=== PATIENT | female | born 2000 | race Caucasian/White ===

== ENCOUNTER 2021-01-06 01:32 | Emergency (ER) | payer OTHER ==
[~2021-01-06] VITALS: Ht 170.2 cm; Wt 73.4 kg
[2021-01-06 01:33] VITALS: BP 133/67
[2021-01-06] MEDS ORDERED: ACETAMINOPHEN TAB 650MG DOSE (2X325MG) PO ONE (04:45)
[2021-01-06] MEDS ORDERED: KETOROLAC 60MG 2ML VIAL IM ONE (04:45)
== END 2021-01-06 06:48 | disposition home or self-care (01) ==
LOC: M ED 01:32 → EDBD 01:32 → M ED 06:48
DX: R53.1 Weakness (principal); R51.9 Headache, unspecified; T50.Z95A Adverse effect of other vaccines and biological substances, initial encounter
CPT/HCPCS: 96372; 99282; J1885